=== PATIENT | male | born 1945 | race Caucasian/White ===

== ENCOUNTER → 2018-04-23 | Outpatient (CLI) | payer BC, MEDICARE ==
[~2018-04-23] MED LIST: AMLO5 PO; Advil200 M1 PO; Aspir 8181 MG; COQ1050 MG PO; EZET10-20; EZET10-20 PO; FISH OIL + D31 EACH PO; GLIP5; Glucophage PO; HYDCHL25 PO; Hair, Skin & N1 EACH PO; Humalog100 UNIT/1; IBUP600; IBUP800; INSDET100 SQ; INSUASPI SC; LISHYD2025; LISHYD2025 PO; LISI20 PO; LORA1 PO; NEBI10 PO; OXYACE5T PO; PIOG45; PIOG45 PO; PRED20 PO; SITA100T2 PO; VALA500 PO
[2018-04-23 10:27] LABS: Alanine Aminotransfer (ALT/SGP 38 U/L (12-78); Albumin/Globulin Ratio 1.1 (0.8-1.8); Alk Phos 86 U/L (40-126); Anion Gap 8 mmol/L (6-16); Aspartate Aminotrans (AST/SGOT 23 U/L (12-37); Bilirubin, Total 0.5 mg/dL (0.1-1.0); Blood Urea Nitrogen 24 mg/dL (8-24); Bun/Creatinine Ratio 21.8 (12.0-20.0); CHOL/HDL RATIO 2.3; CO2, Blood 27 mmol/L (21-32); Calcium, Blood 8.7 mg/dL (8.5-10.1); Chloride, Blood 104 mmol/L (98-108); Cholesterol 98 mg/dL (50-200); Globulin, Blood 3.5 g/dL (2.2-4.0); Glomerular Filtration Rate >60 (60-); Glucose, Blood 126 mg/dL (70-99); HDL Cholesterol 42 mg/dL (>39); LDL/HDL RATIO 1.1; Low Density Lipoprotein Chol 45 mg/dL (<110); Potassium, Blood 4.6 mmol/L (3.5-5.5); Sodium, Blood 139 mmol/L (136-145); Total Protein, Blood 7.5 g/dL (6.4-8.2); Triglycerides 57 mg/dL (30-160); Very Low Density Lipoprot Chol 11 mg/dL (6-32)
== END | disposition home or self-care (01) ==
LOC: LAB EV 09:33 → LAB SHORT 09:33
PROVIDERS: Nurse Practitioner
DX: I10 Essential (primary) hypertension (principal); E78.5 Hyperlipidemia, unspecified
CPT/HCPCS: 80053; 80061

== ENCOUNTER 2019-02-05 07:09 | Day surgery (SDC) | payer BC, MEDICARE ==
[~2019-02-05] VITALS: Ht 180.3 cm; Wt 89.4 kg
[~2019-02-05 07:09] MED LIST changes: +Glucophage1000 MG PO; +TAMS.4ER PO
== END 2019-02-05 09:30 | disposition home or self-care (01) ==
LOC: ORSCSDS 07:09
PROVIDERS: Internal Medicine Gastroenterology
PROC: 0DJD8ZZ Inspection of Lower Intestinal Tract, Via Natural or Artificial Opening Endoscopic (ICD-10-PCS; principal; 2019-02-05 08:30)
DX: Z12.11 Encounter for screening for malignant neoplasm of colon (principal); K57.30 Diverticulosis of large intestine without perforation or abscess without bleeding; K64.4 Residual hemorrhoidal skin tags; K64.8 Other hemorrhoids; N40.0 Benign prostatic hyperplasia without lower urinary tract symptoms; Z86.010 Personal history of colon polyps; Z95.0 Presence of cardiac pacemaker; Z87.891 Personal history of nicotine dependence; I10 Essential (primary) hypertension; E11.9 Type 2 diabetes mellitus without complications; Z79.4 Long term (current) use of insulin; Z79.899 Other long term (current) drug therapy
CPT/HCPCS: 82947; J0330; J0461; J2001; J2405; J2704; J7120

== ENCOUNTER → 2023-02-28 | Outpatient (CLI) | payer BC, MEDICARE ==
[2023-03-01 11:35] LABS: Stool Occult Bld Immuno 1 Negative (NEGATIVE)
== END | disposition home or self-care (01) ==
LOC: LAB 10:00 → LAB SHORT 10:00
PROVIDERS: Family Medicine
DX: R63.4 Abnormal weight loss (principal)
CPT/HCPCS: G0328

== ENCOUNTER 2024-05-22 09:37 | Day surgery (SDC) | payer BC, MEDICARE ==
[~2024-05-22] VITALS: Ht 177.8 cm; Wt 84.6 kg
[~2024-05-22 09:37] MED LIST changes: +Lactated Ringer's 1,000 ML IV ONE; +propofoL 50 ML IV ONE
[2024-05-22] MEDS ORDERED: CALCIUM MAGNES1 EAC1 (10:02)
[2024-05-22] MEDS ORDERED: UBID10 (10:03)
[2024-05-22] MEDS ORDERED: Vitamin D1000 UNI1 (10:03)
[2024-05-22] MEDS ORDERED: FEROSUL (10:05)
[2024-05-22] MEDS ORDERED: FISH OIL 1,0001 EA10 (10:05)
[2024-05-22] MEDS ORDERED: [UNRECOGNIZED DRUG - OTHER] (10:06)
[2024-05-22] MEDS ORDERED: SITA25T2 (10:06)
[2024-05-22] MEDS ORDERED: LACT (10:07)
[2024-05-22] MEDS ORDERED: RYBELSUS14 MG (10:08)
[2024-05-22] MEDS ORDERED: Flomax0.4 MG (10:08)
[2024-05-22] MEDS ORDERED: OMEPRAZOLE20 MG (10:08)
[2024-05-22] MEDS ORDERED: VITAMIN A (10:09)
[2024-05-22] MEDS ORDERED: TRESIBA FL200 UNIT/2 (10:09)
[2024-05-22] MEDS ORDERED: ASCORBIC ACID (10:09)
[2024-05-22] MEDS ORDERED: LISI5 (10:12)
[2024-05-22] MEDS ORDERED: Lactated Ringer's 1,000 ML IV ONE (10:41)
--- NOTE | 2024-05-22 10:41 | NUR ---
05/22/24 1041 Miguel Angel Casarez PT HAS EXTENSIVE CARDIO PHX, ANESTHESIA DR. DAN, REVIEWING CHART TO IDENTIFY IF PT NEEDS TO BE ANESTHESIA CASE OR NURSE SEDATION.
[2024-05-22] MEDS ORDERED: Lidocaine HCl 4% 5 ML SDA ONE (11:06)
[2024-05-22] MEDS ORDERED: propofoL 50 ML IV ONE (11:07)
[2024-05-22 13:00] VITALS: BP 149/76
== END 2024-05-22 13:01 | disposition home or self-care (01) ==
LOC: ORSCSDS 09:37
PROVIDERS: Internal Medicine Gastroenterology
PROC: 0DB98ZX Excision of Duodenum, Via Natural or Artificial Opening Endoscopic, Diagnostic (ICD-10-PCS; principal; 2024-05-22 11:00)
PROC: 0D757ZZ Dilation of Esophagus, Via Natural or Artificial Opening (ICD-10-PCS; principal; 2024-05-22 11:00)
PROC: 0DBK8ZX Excision of Ascending Colon, Via Natural or Artificial Opening Endoscopic, Diagnostic (ICD-10-PCS; principal; 2024-05-22 11:00)
PROC: 0DBL8ZX Excision of Transverse Colon, Via Natural or Artificial Opening Endoscopic, Diagnostic (ICD-10-PCS; principal; 2024-05-22 11:00)
PROC: 0DB68ZX Excision of Stomach, Via Natural or Artificial Opening Endoscopic, Diagnostic (ICD-10-PCS; principal; 2024-05-22 11:00)
DX: K62.5 Hemorrhage of anus and rectum (principal); R19.4 Change in bowel habit; R13.10 Dysphagia, unspecified; Z80.0 Family history of malignant neoplasm of digestive organs; D50.9 Iron deficiency anemia, unspecified; K63.5 Polyp of colon; D12.3 Benign neoplasm of transverse colon; K64.4 Residual hemorrhoidal skin tags; K21.9 Gastro-esophageal reflux disease without esophagitis; G47.33 Obstructive sleep apnea (adult) (pediatric); E11.9 Type 2 diabetes mellitus without complications; Z86.0101 Personal history of adenomatous and serrated colon polyps; I25.2 Old myocardial infarction; I12.9 Hypertensive chronic kidney disease with stage 1 through stage 4 chronic kidney disease, or unspecified chronic kidney disease; E11.22 Type 2 diabetes mellitus with diabetic chronic kidney disease; Z95.0 Presence of cardiac pacemaker; N18.9 Chronic kidney disease, unspecified; I27.20 Pulmonary hypertension, unspecified; Z79.899 Other long term (current) drug therapy
CPT/HCPCS: 82947; 88305; 88342; J2003; J2704; J7120

== ENCOUNTER → 2024-07-10 | Outpatient (CLI) | payer BC, MEDICARE ==
[~2024-07-10] MED LIST changes: +ASCORBIC ACID; +CALCIUM MAGNES1 EAC1; +FEROSUL; +FISH OIL 1,0001 EA10; +Flomax0.4 MG; +LACT; +LISI5; -Lactated Ringer's 1,000 ML IV ONE; +OMEPRAZOLE20 MG; +RYBELSUS14 MG; +SITA25T2; +TRESIBA FL200 UNIT/2; +UBID10; +VITAMIN A; +Vitamin D1000 UNI1; +[UNRECOGNIZED DRUG - OTHER]; -propofoL 50 ML IV ONE
[2024-07-10 18:47] LABS: Creatinine, Urine Random 87.1 mg/dL (27.00-270.00)
[2024-07-10 19:03] LABS: Microalb/Creat Ratio UR, Rand 2066.59 mg/g (0.000-30.000)
== END ==
LOC: LAB 15:30 → LAB SHORT 15:30
PROVIDERS: Family Medicine
DX: E11.65 Type 2 diabetes mellitus with hyperglycemia (principal); E11.69 Type 2 diabetes mellitus with other specified complication
CPT/HCPCS: 82043; 82570

== ENCOUNTER → 2024-09-10 | Outpatient (CLI) | payer BC, MEDICARE ==
[2024-09-10 18:40] LABS: Source, Urine Clean Catch
[2024-09-10 18:43] LABS: Appearance, Urine Cloudy (Clear); Bilirubin, Urine Neg (Neg); Blood, Urine 3+ (Neg); Glucose Qualitative, Urine 4+ (Neg); Ketones, Urine Neg (Neg); Leukocyte Esterase, Urine 3+ (Neg); Nitrite, Urine Neg (Neg); Protein, Urine 3+ (Neg); Urobilinogen, Urine NORM (Normal)
[2024-09-10 18:50] LABS: Color, Urine Pale Yellow (P-Yellow)
[2024-09-10 18:51] LABS: Bacteria Few /hpf; Squamous Epithelial Cells Few /hpf (Few); White Blood Cells, Urine TNTC /hpf (0-5)
[2024-09-10 18:52] LABS: Renal Epithelial Rare /hpf (0-Rare)
== END ==
LOC: LAB 18:38 → LAB SHORT 18:38
PROVIDERS: Internal Medicine Nephrology
DX: I12.9 Hypertensive chronic kidney disease with stage 1 through stage 4 chronic kidney disease, or unspecified chronic kidney disease (principal); N18.32 Chronic kidney disease, stage 3b; E11.22 Type 2 diabetes mellitus with diabetic chronic kidney disease; N32.0 Bladder-neck obstruction
CPT/HCPCS: 81001; 87086

== ENCOUNTER → 2024-11-09 | Outpatient (CLI) | payer BC, MEDICARE ==
[~2024-11-09] MED LIST changes: +ASCO500 PO; -ASCORBIC ACID; +ASCORBIC ACID PO; +AZELASTINE137 MCG/01; +CALCIUM MAG PO; -CALCIUM MAGNES1 EAC1; -EZET10-20 PO; +EZETIMIBE-SIMV1 EAC4 PO; -FEROSUL; +FEROSUL325 M1 PO; +FINA5 PO; -FISH OIL 1,0001 EA10; +FISH OIL 1,0001 EA10 PO; -Flomax0.4 MG; +Flomax0.4 MG PO; -Glucophage1000 MG PO; +JARDIANCE25 MG PO; -LACT; +LACT PO; -LISI5; +METF500C PO; -OMEPRAZOLE20 MG; +OMEPRAZOLE20 MG PO; +Prinivil10 MG PO; -RYBELSUS14 MG; +RYBELSUS14 MG PO; -TRESIBA FL200 UNIT/2; +TRESIBA FL200 UNIT/2 SC; +TURMERIC500 M2 PO; -UBID10; +UBID10 PO; -VITAMIN A; +VITAMIN A PO; -Vitamin D1000 UNI1; +Vitamin D1000 UNI1 PO; +ZINC PO; +[UNRECOGNIZED DRUG - CODE] PO
== END | disposition home or self-care (01) ==
LOC: LAB SHORT 13:07 → LAB 13:07
DX: N39.0 Urinary tract infection, site not specified (principal)
CPT/HCPCS: 87086

== ENCOUNTER 2024-11-13 19:03 | Inpatient (IN) | payer BC, MEDICARE ==
[~2024-11-13] VITALS: Ht 180.3 cm; Wt 81.7 kg
[~2024-11-13 19:03] MED LIST changes: -ASCO500 PO; -AZELASTINE137 MCG/01; -FINA5 PO; -JARDIANCE25 MG PO; -Prinivil10 MG PO; -TURMERIC500 M2 PO; -[UNRECOGNIZED DRUG - CODE] PO
[2024-11-13] MEDS ORDERED: [UNRECOGNIZED DRUG - CODE] PO (19:19)
[2024-11-13] MEDS ORDERED: Ondansetron HCl 2 MG / ML 2ML Vial IV ONE (19:30)
[2024-11-13] MEDS ORDERED: Morphine Sulfate 4 MG/1 ML Injection IV ONE (19:30)
[2024-11-13] MEDS ORDERED: JARDIANCE25 MG PO (19:31)
[2024-11-13] MEDS ORDERED: FINA5 PO (19:34)
[2024-11-13] MEDS ORDERED: AZELASTINE137 MCG/01 (19:35)
[2024-11-13] MEDS ORDERED: ASCO500 PO (19:36)
[2024-11-13] MEDS ORDERED: TURMERIC500 M2 PO (19:39)
[2024-11-13 20:42] LABS: BASOPHILS ABSOLUTE AUTO 0.01 K/mm3 (0.00-0.23); BASOPHILS PERCENT AUTO 0 % (0-2); EOSINOPHILS ABSOLUTE AUTO 0.15 K/mm3 (0.00-0.68); EOSINOPHILS PERCENT AUTO 2 % (0-6); Hematocrit 34.5 % (37.0-53.0); Hemoglobin 11.4 g/dL (13.5-17.5); IMMATURE GRAN ABSOLUTE AUTO 0.03 K/mm3 (0.00-0.10); IMMATURE GRAN PERCENT AUTO 0 % (0-1); LYMPHOCYTES ABSOLUTE AUTO 0.37 K/mm3 (0.84-5.20); LYMPHOCYTES PERCENT AUTO 5 % (21-46); MONOCYTES ABSOLUTE AUTO 0.88 K/mm3 (0.16-1.47); MONOCYTES PERCENT AUTO 12 % (4-13); Mean Corpuscular HGB Conc 33.0 g/dL (31.5-36.5); Mean Corpuscular Volume 92 fL (80-100); NEUTROPHILS ABSOLUTE AUTO 5.99 K/mm3 (1.96-9.15); NEUTROPHILS PERCENT AUTO 81 % (41-73); NRBC ABSOLUTE 0.00 K/mm3 (0.00-0.02); NRBC Auto 0.0 /100 WBC (0.0-0.2); Platelet Count 170 K/mm3 (150-400); RDW Coefficient Variation 13.8 % (11.7-14.2); RDW Standard Deviation 46.9 fL (35.1-46.3)
[2024-11-13 20:57] LABS: Alanine Aminotransfer (ALT/SGP 28.0 U/L (12-78); Albumin, Blood 2.1 g/dL (3.4-5.0); Albumin/Globulin Ratio 0.4 (0.8-1.8); Anion Gap 10.0 mmol/L (3-11); Aspartate Aminotrans (AST/SGOT 12.0 U/L (12-37); Bilirubin, Total 0.2 mg/dL (0.1-1.0); Blood Urea Nitrogen 46.0 mg/dL (8-24); CO2, Blood 21.0 mmol/L (21-32); Calcium, Blood 8.1 mg/dL (8.5-10.1); Chloride, Blood 107.0 mmol/L (98-108); Creatinine, Blood 2.17 mg/dL (0.60-1.20); Globulin, Blood 5.0 g/dL (2.2-4.0); Glucose, Blood 354.0 mg/dL (70-99); Potassium, Blood 4.7 mmol/L (3.5-5.5); Sodium, Blood 133.0 mmol/L (136-145); Total Protein, Blood 7.1 g/dL (6.4-8.2)
[2024-11-13] MEDS ORDERED: Lidocaine 2% Jelly Uro-Jet TOP ONE (21:10)
[2024-11-13 22:11] LABS: Source, Urine Voided
[2024-11-13 22:13] LABS: Bilirubin, Urine Neg (Neg); Glucose Qualitative, Urine 4+ (Neg); Ketones, Urine Neg (Neg); Leukocyte Esterase, Urine 3+ (Neg); Protein, Urine 3+ (Neg); Specific Gravity, Urine 1.010 (1.003-1.022); Urobilinogen, Urine NORM (Normal)
[2024-11-13 22:28] LABS: Color, Urine Pale Yellow (P-Yellow)
[2024-11-13 22:31] LABS: Red Blood Cells, Urine 25-50 /hpf (0-2); White Blood Cells, Urine TNTC /hpf (0-5)
[2024-11-13] MEDS ORDERED: CefTRIAXone Sodium 2,000 MG in NS 100 ML IV ONE (22:40)
[2024-11-14 00:35] VITALS: BP 116/58
[2024-11-14] MEDS ORDERED: NS 1,000 ML IV SCH (01:00)
--- NOTE | 2024-11-14 05:04 | NUR ---
SHIFT SUMMARY 78 YR M ADMITTED ON 11/13/24. LIMITED CODE (MEDS,DEFIB, AND INTUBATION ONLY). NO ACUTE CHANGES SINCE ARRIVAL TO MED UNIT. PT IS A&O X 4 AND ABLE TO MAKE HIS NEEDS KNOWN. HE C/O PAIN IN HIS LEFT SHOULDER DUE TO RECENT FALL. MOVEMENT OF HIS LEFT ARM IS VERY PAINFUL. XRAY IS ORDERED. HAS BEEN AT BEDSIDE SINCE HIS ARRIVAL AND IS A GOOD HISTORIAN. WILLIAM IS PATENT AND DRAINING WELL. INITIAL URINE AFTER INSERTION WAS RED, BUT IS LIGHTENING UP. PT AND HIS HAVE BEEN SLEEPING SINCE SHORTLY AFTER THEIR ARRIVAL. BED IS IN LOW POSITION AND CALL LIGHT IN REACH.
[2024-11-14 06:03] VITALS: BP 129/70
[2024-11-14 06:20] LABS: BASOPHILS ABSOLUTE AUTO 0.02 K/mm3 (0.00-0.23); BASOPHILS PERCENT AUTO 0 % (0-2); Hematocrit 33.7 % (37.0-53.0); Hemoglobin 10.8 g/dL (13.5-17.5); LYMPHOCYTES ABSOLUTE AUTO 0.72 K/mm3 (0.84-5.20); LYMPHOCYTES PERCENT AUTO 10 % (21-46); MONOCYTES ABSOLUTE AUTO 1.29 K/mm3 (0.16-1.47); MONOCYTES PERCENT AUTO 17 % (4-13); Mean Corpuscular HGB Conc 32.0 g/dL (31.5-36.5); Mean Corpuscular Volume 95 fL (80-100); NRBC ABSOLUTE 0.00 K/mm3 (0.00-0.02); NRBC Auto 0.0 /100 WBC (0.0-0.2); Platelet Count 156 K/mm3 (150-400); RDW Coefficient Variation 13.9 % (11.7-14.2); RDW Standard Deviation 49.4 fL (35.1-46.3)
[2024-11-14 06:25] LABS: EOSINOPHILS ABSOLUTE AUTO 0.20 K/mm3 (0.00-0.68); EOSINOPHILS PERCENT AUTO 3 % (0-6); IMMATURE GRAN ABSOLUTE AUTO 0.03 K/mm3 (0.00-0.10); IMMATURE GRAN PERCENT AUTO 0 % (0-1); NEUTROPHILS ABSOLUTE AUTO 5.27 K/mm3 (1.96-9.15); NEUTROPHILS PERCENT AUTO 70 % (41-73)
[2024-11-14 07:24] LABS: Alanine Aminotransfer (ALT/SGP 22.0 U/L (12-78); Albumin, Blood 1.9 g/dL (3.4-5.0); Albumin/Globulin Ratio 0.4 (0.8-1.8); Anion Gap 9.0 mmol/L (3-11); Aspartate Aminotrans (AST/SGOT 9.0 U/L (12-37); Bilirubin, Total 0.1 mg/dL (0.1-1.0); Blood Urea Nitrogen 43.0 mg/dL (8-24); CO2, Blood 23.0 mmol/L (21-32); Calcium, Blood 8.0 mg/dL (8.5-10.1); Chloride, Blood 107.0 mmol/L (98-108); Creatinine, Blood 2.26 mg/dL (0.60-1.20); Globulin, Blood 4.5 g/dL (2.2-4.0); Glucose, Blood 237.0 mg/dL (70-99); Potassium, Blood 4.8 mmol/L (3.5-5.5); Sodium, Blood 134.0 mmol/L (136-145); Total Protein, Blood 6.4 g/dL (6.4-8.2)
[2024-11-14] MEDS ORDERED: Insulin Human Lispro 100 Units/ML 3ML Syringe SC SCH (07:30)
[2024-11-14 07:31] VITALS: BP 140/73
[2024-11-14] MEDS ORDERED: Lactobacil 2-S.Thermo-Bifido 1 1 Cap PO SCH (09:00)
[2024-11-14] MEDS ORDERED: Lidocaine 2% Jelly Uro-Jet UR ONE (11:55)
[2024-11-14 16:05] VITALS: BP 138/71
[2024-11-14] MEDS ORDERED: Prinivil10 MG PO (16:30)
--- NOTE | 2024-11-14 17:19 | NUR ---
SHIFT SUMMARY PT AOX4, 1 ASSIST WITH THE FWW TO THE BR. WILLIAM IN PLACE AND DRAINING RED URINE. CONSULTED BY UROLOGY THIS SHIFT, SEE HIS NOTE. DR. ELIZABETH ALSO AWARE. PRN IRRIGATION IF WILLIAM CLOGS. SEE NURSE NOTIFICATION. PT MEDICATED FOR PAIN PER THE EMAR WITH MUCH RELIEF. FAMILY AT THE BS ALL SHIFT. PT REPOSITIONS SELF IN BED. CALL LIGHT WITHIN REACH, BED LOCKED AND IN THE LOWEST POSITION. WILL REPORT TO ONCOMING NURSE.
[2024-11-14] MEDS ORDERED: NS 250 ML IV PRN (19:20)
[2024-11-14 20:34] VITALS: BP 148/75
[2024-11-14] MEDS ORDERED: CefTRIAXone Sodium 1,000 MG in NS 100 ML IV SCH (21:00)
[2024-11-15 02:29] VITALS: BP 158/80
--- NOTE | 2024-11-15 03:39 | NUR ---
SHIFT SUMMARY: PT IS AOX4 AND SBA TO BTHRM. WILLIAM IS PLACED AND DRAINING TO GRAVITY BELOW HE BLADDER. URINE IS RED. BLADDER IRRIGATED PRN FOR BLOOD CLOTS. AT BEDSIDE. PT MEDICATED PER EMAR. NO ACUTE CHANGES FOR THIS SHIFT. BED ALARM ON FOR SAFETY.
[2024-11-15 06:08] LABS: BASOPHILS ABSOLUTE AUTO 0.03 K/mm3 (0.00-0.23); BASOPHILS PERCENT AUTO 0 % (0-2); EOSINOPHILS ABSOLUTE AUTO 0.24 K/mm3 (0.00-0.68); EOSINOPHILS PERCENT AUTO 3 % (0-6); Hematocrit 35.8 % (37.0-53.0); Hemoglobin 11.6 g/dL (13.5-17.5); IMMATURE GRAN ABSOLUTE AUTO 0.03 K/mm3 (0.00-0.10); IMMATURE GRAN PERCENT AUTO 0 % (0-1); LYMPHOCYTES ABSOLUTE AUTO 0.72 K/mm3 (0.84-5.20); LYMPHOCYTES PERCENT AUTO 10 % (21-46); MONOCYTES ABSOLUTE AUTO 0.93 K/mm3 (0.16-1.47); MONOCYTES PERCENT AUTO 12 % (4-13); Mean Corpuscular HGB Conc 32.4 g/dL (31.5-36.5); Mean Corpuscular Volume 95 fL (80-100); NEUTROPHILS ABSOLUTE AUTO 5.65 K/mm3 (1.96-9.15); NEUTROPHILS PERCENT AUTO 74 % (41-73); NRBC ABSOLUTE 0.00 K/mm3 (0.00-0.02); NRBC Auto 0.0 /100 WBC (0.0-0.2); Platelet Count 192 K/mm3 (150-400); RDW Coefficient Variation 14.0 % (11.7-14.2); RDW Standard Deviation 48.7 fL (35.1-46.3)
[2024-11-15 06:25] LABS: Anion Gap 8.0 mmol/L (3-11); Blood Urea Nitrogen 41.0 mg/dL (8-24); CO2, Blood 22.0 mmol/L (21-32); Calcium, Blood 8.3 mg/dL (8.5-10.1); Chloride, Blood 107.0 mmol/L (98-108); Creatinine, Blood 2.2 mg/dL (0.60-1.20); Glucose, Blood 246.0 mg/dL (70-99); Potassium, Blood 5.1 mmol/L (3.5-5.5); Sodium, Blood 132.0 mmol/L (136-145)
[2024-11-15 07:26] VITALS: BP 143/74
[2024-11-15] MEDS ORDERED: COENZYME Q-1030 MG PO (14:00)
[2024-11-15] MEDS ORDERED: OXYB5 PO (14:03)
[2024-11-15] MEDS ORDERED: CEFP200 PO (14:03)
--- NOTE | 2024-11-15 14:46 | NUR ---
DISCHARGE NOTE PT DISCHARGED TO HOME, PICKED UP BY HIS . IV REMOVED. DISCHARGE EDUCATION AND INFORMATION REVIEWED WITH THE PT. MEDICATIONS FAXED TO THE PHARMACY OF HIS CHOICE. LEG BAG PROVIDED ALONG WITH A NIGHT BAG FOR HIS WILLIAM CATHETER. PERSONAL BELONGINGS RETURNED.
== END 2024-11-15 14:37 | disposition home or self-care (01) | DRG 872 ==
LOC: ER 19:03 → MEDS 22:25
PROVIDERS: Emergency Medicine; Internal Medicine; Student in an Organized Health Care Education/Training Program; ADMIT Student in an Organized Health Care Education/Training Program
PROC: 0T9B70Z Drainage of Bladder with Drainage Device, Via Natural or Artificial Opening (ICD-10-PCS; principal; 2024-11-13)
PROC: 3E03329 Introduction of Other Anti-infective into Peripheral Vein, Percutaneous Approach (ICD-10-PCS; 2024-11-13)
DX: A41.9 Sepsis, unspecified organism (principal); E87.1 Hypo-osmolality and hyponatremia; N17.9 Acute kidney failure, unspecified; N13.6 Pyonephrosis; N40.1 Benign prostatic hyperplasia with lower urinary tract symptoms; R33.8 Other retention of urine; M25.512 Pain in left shoulder; K90.0 Celiac disease; I12.9 Hypertensive chronic kidney disease with stage 1 through stage 4 chronic kidney disease, or unspecified chronic kidney disease; E11.22 Type 2 diabetes mellitus with diabetic chronic kidney disease; N18.31 Chronic kidney disease, stage 3a; K21.9 Gastro-esophageal reflux disease without esophagitis; E78.5 Hyperlipidemia, unspecified; D50.9 Iron deficiency anemia, unspecified; Z98.52 Vasectomy status; Z98.890 Other specified postprocedural states; Z95.0 Presence of cardiac pacemaker; Z90.49 Acquired absence of other specified parts of digestive tract; Z87.891 Personal history of nicotine dependence; Z79.4 Long term (current) use of insulin; Z79.84 Long term (current) use of oral hypoglycemic drugs; Z79.899 Other long term (current) drug therapy; Z98.1 Arthrodesis status; W18.30XA Fall on same level, unspecified, initial encounter
CPT/HCPCS: 36415; 51702; 73030; 74177; 80048; 80053; 81001; 82947; 83605; 83690; 85025; 87086; 93005; 93010; 96374-59; 96375; 97110; 97112; 97161; 97165; 97530; 97535; 99285-25; A9270; J0696; J2270; J2405; J7030; J7050; Q9967

== ENCOUNTER 2025-02-14 15:30 | Emergency (ER) | payer BC, MEDICARE ==
[~2025-02-14] VITALS: Ht 177.8 cm; Wt 74.8 kg
[~2025-02-14 15:30] MED LIST changes: +ASCO500 PO; +AZELASTINE137 MCG/01; +CEFP200 PO; +COENZYME Q-1030 MG PO; +FINA5 PO; +JARDIANCE25 MG PO; +OXYB5 PO; +Prinivil10 MG PO; +TURMERIC500 M2 PO; +[UNRECOGNIZED DRUG - CODE] PO
[2025-02-14] MEDS ORDERED: Lidocaine 2% Jelly Uro-Jet UR ONE (15:50)
[2025-02-14 16:29] LABS: Source, Urine Clean Catch
[2025-02-14 16:32] LABS: Bilirubin, Urine Neg (Neg); Glucose Qualitative, Urine Neg (Neg); Ketones, Urine Neg (Neg); Leukocyte Esterase, Urine 3+ (Neg); Protein, Urine 3+ (Neg); Specific Gravity, Urine 1.005 (1.003-1.022); Urobilinogen, Urine NORM (Normal)
[2025-02-14 16:35] VITALS: BP 148/70
[2025-02-14 16:39] LABS: Color, Urine Pale Yellow (P-Yellow)
[2025-02-14 16:40] LABS: Red Blood Cells, Urine TNTC /hpf (0-2); White Blood Cells, Urine TNTC /hpf (0-5)
== END 2025-02-14 16:44 | disposition home or self-care (01) ==
LOC: ER 15:30
PROVIDERS: Emergency Medicine
DX: T83.021A Displacement of indwelling urethral catheter, initial encounter (principal); R31.9 Hematuria, unspecified; I10 Essential (primary) hypertension; E11.9 Type 2 diabetes mellitus without complications; E78.5 Hyperlipidemia, unspecified; K21.9 Gastro-esophageal reflux disease without esophagitis; Z87.891 Personal history of nicotine dependence; Z79.84 Long term (current) use of oral hypoglycemic drugs; Z79.4 Long term (current) use of insulin; Z79.899 Other long term (current) drug therapy
CPT/HCPCS: 51702; 81001; 87086; 99283-25

== ENCOUNTER → 2025-03-07 | Outpatient (CLI) | payer BC, MEDICARE ==
[2025-03-07 14:55] LABS: Bilirubin, Urine Neg (Neg); Color, Urine Yellow (P-Yellow); Glucose Qualitative, Urine 1+ (Neg); Ketones, Urine Neg (Neg); Leukocyte Esterase, Urine 3+ (Neg); Protein, Urine 3+ (Neg); Specific Gravity, Urine 1.015 (1.003-1.022); Urobilinogen, Urine NORM (Normal)
[2025-03-07 15:06] LABS: White Blood Cells, Urine TNTC /hpf (0-5)
== END ==
LOC: LAB 12:05 → LAB SHORT 12:05
PROVIDERS: Urology
DX: N40.1 Benign prostatic hyperplasia with lower urinary tract symptoms (principal)
CPT/HCPCS: 81001; 87077; 87086; 87186

== ENCOUNTER 2025-04-08 04:23 | Day surgery (SDC) | payer BC, MEDICARE ==
[~2025-04-08 04:23] MED LIST changes: +Sod Ferric Gluc Complx/Sucrose 125 MG in NS 100 ML IV SCH
[2025-04-08] MEDS ORDERED: Acerola C500 MG PO (15:16)
[2025-04-08 15:24] VITALS: BP 153/66
== END 2025-04-08 16:10 | disposition home or self-care (01) ==
LOC: ATC 04:23
DX: D50.8 Other iron deficiency anemias (principal); I12.9 Hypertensive chronic kidney disease with stage 1 through stage 4 chronic kidney disease, or unspecified chronic kidney disease; E11.22 Type 2 diabetes mellitus with diabetic chronic kidney disease; N18.32 Chronic kidney disease, stage 3b; D63.1 Anemia in chronic kidney disease; N40.0 Benign prostatic hyperplasia without lower urinary tract symptoms; K21.9 Gastro-esophageal reflux disease without esophagitis; E78.5 Hyperlipidemia, unspecified; G47.33 Obstructive sleep apnea (adult) (pediatric); G25.81 Restless legs syndrome; Z95.0 Presence of cardiac pacemaker; Z79.84 Long term (current) use of oral hypoglycemic drugs; Z79.899 Other long term (current) drug therapy; Z91.018 Allergy to other foods; Z87.891 Personal history of nicotine dependence; Z90.49 Acquired absence of other specified parts of digestive tract
CPT/HCPCS: 96365; J2916

== ENCOUNTER 2025-04-09 02:52 | Day surgery (SDC) | payer BC, MEDICARE ==
[~2025-04-09 02:52] MED LIST changes: +Acerola C500 MG PO; -Sod Ferric Gluc Complx/Sucrose 125 MG in NS 100 ML IV SCH
[2025-04-09] MEDS ORDERED: Sod Ferric Gluc Complx/Sucrose 125 MG in NS 100 ML IV SCH (07:15)
[2025-04-09 15:32] VITALS: BP 147/71
== END 2025-04-09 16:38 | disposition home or self-care (01) ==
LOC: ATC 02:52
DX: E11.22 Type 2 diabetes mellitus with diabetic chronic kidney disease (principal); I12.9 Hypertensive chronic kidney disease with stage 1 through stage 4 chronic kidney disease, or unspecified chronic kidney disease; N18.4 Chronic kidney disease, stage 4 (severe); D63.1 Anemia in chronic kidney disease; E78.5 Hyperlipidemia, unspecified; D50.8 Other iron deficiency anemias; Z87.891 Personal history of nicotine dependence; Z88.8 Allergy status to other drugs, medicaments and biological substances; Z79.84 Long term (current) use of oral hypoglycemic drugs
CPT/HCPCS: 96365; J2916

== ENCOUNTER 2025-04-10 00:40 | Day surgery (SDC) | payer BC, MEDICARE ==
[2025-04-10] MEDS ORDERED: Sod Ferric Gluc Complx/Sucrose 125 MG in NS 100 ML IV SCH (06:00)
[2025-04-10 15:02] VITALS: BP 117/62
== END 2025-04-10 16:05 | disposition home or self-care (01) ==
LOC: ATC 00:40
DX: E11.22 Type 2 diabetes mellitus with diabetic chronic kidney disease (principal); I12.9 Hypertensive chronic kidney disease with stage 1 through stage 4 chronic kidney disease, or unspecified chronic kidney disease; D63.1 Anemia in chronic kidney disease; N18.4 Chronic kidney disease, stage 4 (severe); E78.5 Hyperlipidemia, unspecified; Z79.84 Long term (current) use of oral hypoglycemic drugs; Z88.8 Allergy status to other drugs, medicaments and biological substances; Z87.891 Personal history of nicotine dependence
CPT/HCPCS: 96365; J2916

== ENCOUNTER 2025-04-11 03:44 | Day surgery (SDC) | payer BC, MEDICARE ==
[~2025-04-11 03:44] MED LIST changes: +Sod Ferric Gluc Complx/Sucrose 125 MG in NS 100 ML IV SCH
[2025-04-11 14:50] VITALS: BP 126/58
== END 2025-04-11 15:49 | disposition home or self-care (01) ==
LOC: ATC 03:44
DX: D50.8 Other iron deficiency anemias (principal); I12.9 Hypertensive chronic kidney disease with stage 1 through stage 4 chronic kidney disease, or unspecified chronic kidney disease; E11.22 Type 2 diabetes mellitus with diabetic chronic kidney disease; N18.32 Chronic kidney disease, stage 3b; D63.1 Anemia in chronic kidney disease; E11.69 Type 2 diabetes mellitus with other specified complication; E78.2 Mixed hyperlipidemia; K21.9 Gastro-esophageal reflux disease without esophagitis; G25.81 Restless legs syndrome; F41.1 Generalized anxiety disorder; N40.0 Benign prostatic hyperplasia without lower urinary tract symptoms; G47.33 Obstructive sleep apnea (adult) (pediatric); Z87.891 Personal history of nicotine dependence; Z95.0 Presence of cardiac pacemaker; Z79.84 Long term (current) use of oral hypoglycemic drugs; Z79.899 Other long term (current) drug therapy; Z91.018 Allergy to other foods; Z90.49 Acquired absence of other specified parts of digestive tract
CPT/HCPCS: 96365